=== PATIENT | female | born 1980 | race Caucasian/White ===

== ENCOUNTER 2017-01-18 22:42 | Emergency (ER) | payer MEDICAID ==
[2015-08-22 06:11] VITALS: BMI 28.9
[~2017-01-18 22:42] MED LIST: ADVIL200 MG PO; HYDROCODONE-APA1 TAB PO; VISTARIL25 MG PO; ZOLOFT50 MG PO
== END 2017-01-18 23:54 | disposition home or self-care (01) ==
LOC: D.ER 22:42
DX: J20.9 Acute bronchitis, unspecified (principal); F17.200 Nicotine dependence, unspecified, uncomplicated

== ENCOUNTER 2017-10-14 15:50 | Emergency (ER) | payer MEDICAID ==
[2015-08-22 06:11] VITALS: BMI 28.9
[2017-10-14 16:45] LABS: BASOPHILS 0.4 % (0-2); EOSINOPHILS 1.1 % (0-7); HEMATOCRIT 41.7 % (36.0-48.0); HEMOGLOBIN 14.5 g/dL (12-16); IMMATURE GRANULOCYTES 0.2 % (0-5); LYMPHOCYTES 24.7 % (15-50); MCH 32.9 pg (26.0-34.0); MCHC 34.8 g/dL (31.0-37.0); MCV 94.6 fL (80.0-100.0); MEAN PLATELET VOLUME 11.9 fL (7.4-10.4); MONOCYTES 5.7 % (2-11); NEUTROPHILS 67.9 % (40-80); PLATELET COUNT 200 10x3/uL (130-400); RBC 4.41 10x6/uL (4.00-5.40); RDW 12.7 % (11.5-14.5); WBC 9.8 10x3/uL (4.8-10.8)
[2017-10-14 16:47] LABS: ALBUMIN 3.9 g/dL (3.4-5.0); ALKALINE PHOSPHATASE 101 U/L (46-116); ALT (SGPT) 23 U/L (10-68); CALC OSMOLALITY 273 mosm/kg (275-300); CALCIUM 8.7 mg/dL (8.5-10.1); CARBON DIOXIDE 24.3 mmol/L (21.0-32.0); CHLORIDE - SERUM 105 mmol/L (98-107); CREATININE - SERUM 0.9 mg/dL (0.6-1.3); GLUCOSE 79 mg/dL (74-106); POTASSIUM - SERUM 4.3 mmol/L (3.5-5.1); PROTEIN - SERUM 7.3 g/dL (6.4-8.2); SODIUM 138 mmol/L (136-145); UREA NITROGEN 10 mg/dL (7-18); eGFR NON AFRICAN AMERICAN 75 mL/min (90-120)
[2017-10-14 16:55] LABS: HCG - QUANTITATIVE (MATERNAL) 0 mIU/mL
[2017-10-14 17:18] LABS: APPEARANCE CLEAR (CLEAR); BILIRUBIN NEGATIVE (NEGATIVE); COLOR YELLOW (YELLOW); GLUCOSE NEGATIVE (NEGATIVE); KETONE NEGATIVE (NEGATIVE); NITRITE NEGATIVE (NEGATIVE); PROTEIN NEGATIVE (NEGATIVE); UROBILINOGEN NORMAL (NORMAL)
== END 2017-10-14 18:15 | disposition home or self-care (01) ==
LOC: D.ER 15:50
PROVIDERS: Family Medicine
DX: R10.11 Right upper quadrant pain (principal)

== ENCOUNTER 2017-11-11 05:40 | Day surgery (SDC) | payer MEDICAID ==
[2017-11-10 13:35] LABS: BASOPHILS 0.3 % (0-2); EOSINOPHILS 1.3 % (0-7); HEMATOCRIT 42.2 % (36.0-48.0); HEMOGLOBIN 14.6 g/dL (12-16); IMMATURE GRANULOCYTES 0.2 % (0-5); MCH 33.1 pg (26.0-34.0); MCHC 34.6 g/dL (31.0-37.0); MCV 95.7 fL (80.0-100.0); MEAN PLATELET VOLUME 11.9 fL (7.4-10.4); MONOCYTES 6.4 % (2-11); NEUTROPHILS 65.8 % (40-80); PLATELET COUNT 184 10x3/uL (130-400); RBC 4.41 10x6/uL (4.00-5.40); WBC 8.6 10x3/uL (4.8-10.8)
[2017-11-10 13:48] LABS: CALC OSMOLALITY 278 mosm/kg (275-300); CALCIUM 9.6 mg/dL (8.5-10.1); CARBON DIOXIDE 22.1 mmol/L (21.0-32.0); CHLORIDE - SERUM 105 mmol/L (98-107); CREATININE - SERUM 0.8 mg/dL (0.6-1.3); SODIUM 140 mmol/L (136-145); UREA NITROGEN 9 mg/dL (7-18); eGFR NON AFRICAN AMERICAN 86 mL/min (90-120)
[2017-11-10 13:50] LABS: GLUCOSE 121 mg/dL (74-106)
[~2017-11-11] VITALS: Ht 162.6 cm; Wt 78.9 kg
--- NOTE | ~2017-11-11 | OP ---
PATIENT NAME: DONA COSTA MEDICAL RECORD: [id number] :82 LOCATION:D.OPS ADMISSION DATE: SURGEON: DAVEY HERRMANN MD DATE OF OPERATION: 11/11/2017 PREOPERATIVE DIAGNOSIS: Biliary dyskinesia. POSTOPERATIVE DIAGNOSIS: Biliary dyskinesia. PROCEDURE: Laparoscopic cholecystectomy. SURGEON: Davey Herrmann MD MANAGER PERFORMANCE IMPROVEMENT: Hyacinth Pastrana APRN REPORT OF OPERATION: The patient's abdomen was prepped and draped in sterile fashion. A cutdown was made on the inferior aspect of the umbilicus, 0 Vicryls were placed in the fascia bilaterally and the fascia was incised with 15 blade. I then bluntly entered the peritoneal cavity and placed a 12-mm Cedrick port. Under direct visualization, a 5-mm trocar was placed in the epigastrium and 2 more 5-mm trocars were placed in the right subcostal region. The gallbladder was elevated and there were no sign of any inflammatory changes. The cystic artery and cystic duct were dissected free and these were clipped proximally and distally and ligated in standard fashion. The gallbladder was taken off the liver bed using electrocautery and placed into the right upper quadrant. Any bleeding from the liver bed was then treated with electrocautery. We irrigated out the right upper quadrant and assured there was no sign of any bleeding or bile leakage. At this point, the ports and insufflation were then removed and the gallbladder was taken out through the umbilicus. The umbilical fascia was closed with interrupted 0 Vicryls times 3. The wounds were irrigated out with normal saline, infused with 10 mL of 0.25% Marcaine with epinephrine. The skin incisions were closed with subcutaneous 5-0 Monocryl and dressed appropriately. COMPLICATIONS: None. CONDITION: Stable. ANESTHESIA: General endotracheal and local. BLOOD LOSS: Minimal. TRANSINT:[id number] Voice Confirmation ID: [id number] DOCUMENT ID: [id number] DAVEY HERRMANN MD at 1228 CC: KATHY RAMIREZ MD [id number] DICTATION DATE: 11/11/17 0851 VETERINARY VIROLOGIST: 11/11/17 0946 [id number] [place] [address]
[~2017-11-11 05:40] MED LIST changes: +KLONOPIN0.5 MG PO; +TOFRANIL50 MG PO
[2017-11-11 06:28] VITALS: Ht 162.6 cm; Wt 78.9 kg
[2017-11-11] MEDS ORDERED: HYDROCODONE-APA1 TAB PO (08:52)
== END 2017-11-11 11:20 | disposition home or self-care (01) ==
LOC: D.OPS 05:40 → D.PAN 08:00 → D.OPS 08:00
PROVIDERS: Surgery
DX: K81.1 Chronic cholecystitis (principal); Z01.812 Encounter for preprocedural laboratory examination

== ENCOUNTER 2018-01-05 17:06 | Emergency (ER) | payer MEDICAID ==
[~2018-01-05] VITALS: Ht 162.6 cm; Wt 75.9 kg
[2018-01-05 17:20] VITALS: Ht 162.6 cm; Wt 75.9 kg
[2018-01-05] MEDS ORDERED: TORADOL10 MG PO (18:19)
[2018-01-05 19:28] VITALS: BP 103/69
== END 2018-01-05 19:30 | disposition home or self-care (01) ==
LOC: D.ER 17:06
DX: S90.32XA Contusion of left foot, initial encounter (principal); W20.8XXA Other cause of strike by thrown, projected or falling object, initial encounter; Y93.89 Activity, other specified; Y92.019 Unspecified place in single-family (private) house as the place of occurrence of the external cause

== ENCOUNTER 2018-03-29 18:11 | Day surgery (SDC) | payer MEDICAID ==
[~2018-03-29] VITALS: Ht 162.6 cm; Wt 77.1 kg
--- NOTE | ~2018-03-29 | MORECARE ---
CASE MANAGEMENT DISCHARGE SUMMARY PATIENT: DONA COSTA UNIT: [id number] ADM DATE: 03/29/18 AGE: 37 : [birth year] SEX: F ROOM/BED: D.2226 AUTHOR: KWADWO BRUNO PHYSICIAN: REFERRING PHYSICIAN: SOFIA SCHMITT MD DATE OF SERVICE: 03/31/18 Discharge Plan Patient Name: DONA COSTA Facility: [facility]:[place] : 1980 Planned Disposition: Anticipated Discharge Date: Discharge Date: 03/30/2018 Expected LOS: 0 Initial Reviewer: [email or web address] Initial Review Date: 03/31/2018 Generated: 03/31/18 10:10 am Patient Name: DONA COSTA Page [id number] at 0910 All edits/amendments must be made on the electronic document DICTATION DATE: 03/31/18909 MOLD BREAKER: RIDGE 03/31/18909 RPT#: [id number] DC DATE:03/30/18 STATUS: DIS IN [facility] [address] [place] [address] END OF REPORT
--- NOTE | ~2018-03-29 | DS ---
PATIENT:DONA COSTA :[birth year] MEDICAL RECORD: [id number] DISCHARGE SUMMARY ADMISSION DATE: 03/29/18 DISCHARGE DATE: 03/30/18 DATE OF ADMISSION: 03/29/2018. DATE OF DISCHARGE: 03/30/2018. ADMISSION DIAGNOSES: 1. Pelvic pain. 2. Pelvic mass. DISCHARGE DIAGNOSES: 1. Pelvic pain. 2. Pelvic mass. 3. Right hemorrhagic ovarian cyst. 4. Adhesive disease. 5. Presence of foreign body. 6. Suspect adenomyosis. ATTENDING: Sofia Schmitt MD PROCEDURE PERFORMED: 1. Diagnostic laparoscopy. 2. Lysis of adhesions. 3. Removal of foreign body. 4. Right ovarian cystectomy. HISTORY OF PRESENT ILLNESS: See the H&P in [place]. SUMMARY OF HOSPITALIZATION: The patient was admitted to the hospital and underwent procedure. The patient is discharged pending void and tolerating p.o. DISCHARGE MEDICATIONS: Will include Percocet and ibuprofen. The patient will follow up in 2 weeks at [facility]. TRANSINT:[id number] Voice Confirmation ID: [id number] DOCUMENT ID: [id number] SOFIA SCHMITT MD at 1243 CC: [id number] DICTATION DATE: 03/30/18 1608 DRILLER AND REAMER: 03/31/18 0124 DIS IN 03/30/18 [id number] [place] [address]
[~2018-03-29 18:11] MED LIST changes: +TORADOL10 MG PO
[2018-03-29] MEDS ORDERED: DESERYL50 M2 PO (18:17)
[2018-03-29 18:36] LABS: APPEARANCE CLEAR (CLEAR); COLOR YELLOW (YELLOW)
[2018-03-29 18:37] LABS: BILIRUBIN NEGATIVE (NEGATIVE); GLUCOSE NEGATIVE (NEGATIVE); KETONE NEGATIVE (NEGATIVE); NITRITE NEGATIVE (NEGATIVE); PROTEIN NEGATIVE (NEGATIVE); UROBILINOGEN NORMAL (NORMAL)
[2018-03-29 18:38] LABS: BACTERIA FEW /hpf (NONE SEEN); RED CELLS - URINE 0-5 /hpf (0-5); WHITE CELLS - URINE 0-5 /hpf (0-5)
[2018-03-29 18:53] LABS: BASOPHILS 0.5 % (0-2); EOSINOPHILS 1.6 % (0-7); HEMATOCRIT 38.6 % (36.0-48.0); HEMOGLOBIN 13.2 g/dL (12-16); IMMATURE GRANULOCYTES 0.3 % (0-5); LYMPHOCYTES 31.5 % (15-50); MCH 32.8 pg (26.0-34.0); MCHC 34.2 g/dL (31.0-37.0); MEAN PLATELET VOLUME 11.5 fL (7.4-10.4); MONOCYTES 6.2 % (2-11); NEUTROPHILS 59.9 % (40-80); PLATELET COUNT 189 10x3/uL (130-400); RBC 4.02 10x6/uL (4.00-5.40); RDW 13.3 % (11.5-14.5); WBC 10.9 10x3/uL (4.8-10.8)
[2018-03-29 19:15] LABS: ALBUMIN 3.3 g/dL (3.4-5.0); ALKALINE PHOSPHATASE 93 U/L (46-116); ALT (SGPT) 23 U/L (10-68); AMYLASE - SERUM 32 U/L (25-115); BILIRUBIN - TOTAL 0.11 mg/dL (0.2-1.3); CALC OSMOLALITY 278 mosm/kg (275-300); CALCIUM 8.2 mg/dL (8.5-10.1); CARBON DIOXIDE 23.7 mmol/L (21.0-32.0); CHLORIDE - SERUM 107 mmol/L (98-107); CREATININE - SERUM 0.7 mg/dL (0.6-1.3); GLUCOSE 101 mg/dL (74-106); LIPASE 101 U/L (73-393); POTASSIUM - SERUM 3.7 mmol/L (3.5-5.1); PROTEIN - SERUM 6.8 g/dL (6.4-8.2); SODIUM 141 mmol/L (136-145); UREA NITROGEN 8 mg/dL (7-18); eGFR NON AFRICAN AMERICAN > 90 mL/min (90-120)
[2018-03-29 20:04] LABS: HCG URINE NEGATIVE (NEGATIVE)
[2018-03-29 21:30] VITALS: BP 108/65
[2018-03-30] VITALS (7 sets, daily range): BP systolic 89–109; BP diastolic 55–76; Ht 162.6 cm; Wt 77.1 kg
[2018-03-30] MEDS ORDERED: IBUPROFEN800 MG PO (16:35)
[2018-03-30] MEDS ORDERED: OXYCODONE-APAP1 T10 PO (16:36)
== END 2018-03-30 18:29 | disposition home or self-care (01) ==
LOC: OBSVTIME → D.OPS 18:11 → D.ER 18:11 → D.MS 23:05 → D.ER 23:05 → D.MS 23:05 → OBSVTIME 23:05 → D.ER 23:32 → EDSTATUS 03-30 12:15 → D.MS 03-30 18:29 → D.OPS 03-30 18:29 → D.MS 03-30 18:29
PROVIDERS: Family Medicine
DX: N83.201 Unspecified ovarian cyst, right side (principal); R10.2 Pelvic and perineal pain; N73.6 Female pelvic peritoneal adhesions (postinfective)

== ENCOUNTER 2018-04-03 17:53 | Emergency (ER) | payer MEDICAID ==
[~2018-04-03] VITALS: Ht 162.6 cm; Wt 78.6 kg
[~2018-04-03 17:53] MED LIST changes: +DESERYL50 M2 PO; +IBUPROFEN800 MG PO; +OXYCODONE-APAP1 T10 PO
[2018-04-03 17:55] VITALS: BP 130/79; Ht 162.6 cm; Wt 78.6 kg
== END 2018-04-03 19:12 | disposition home or self-care (01) ==
LOC: D.ER 17:53
DX: T81.31XA Disruption of external operation (surgical) wound, not elsewhere classified, initial encounter (principal); F17.200 Nicotine dependence, unspecified, uncomplicated

== ENCOUNTER 2018-05-29 10:20 | Day surgery (SDC) | payer MEDICAID ==
[2018-05-25 11:32] LABS: BASOPHILS 1.2 % (0-2); EOSINOPHILS 3.1 % (0-7); HEMATOCRIT 41.4 % (36.0-48.0); HEMOGLOBIN 14.2 g/dL (12-16); IMMATURE GRANULOCYTES 0.1 % (0-5); LYMPHOCYTES 30.3 % (15-50); MCH 32.8 pg (26.0-34.0); MCHC 34.3 g/dL (31.0-37.0); MCV 95.6 fL (80.0-100.0); MEAN PLATELET VOLUME 11.5 fL (7.4-10.4); MONOCYTES 6.4 % (2-11); NEUTROPHILS 58.9 % (40-80); PLATELET COUNT 192 10x3/uL (130-400); RBC 4.33 10x6/uL (4.00-5.40); RDW 12.4 % (11.5-14.5); WBC 7.7 10x3/uL (4.8-10.8)
[2018-05-25 11:51] LABS: CALC OSMOLALITY 272 mosm/kg (275-300); CALCIUM 8.7 mg/dL (8.5-10.1); CARBON DIOXIDE 26.2 mmol/L (21.0-32.0); CHLORIDE - SERUM 101 mmol/L (98-107); CREATININE - SERUM 0.9 mg/dL (0.6-1.3); GLUCOSE 99 mg/dL (74-106); POTASSIUM - SERUM 3.9 mmol/L (3.5-5.1); SODIUM 137 mmol/L (136-145); UREA NITROGEN 11 mg/dL (7-18); eGFR NON AFRICAN AMERICAN 75 mL/min (90-120)
[2018-05-29] VITALS (7 sets, daily range): BP systolic 107–119; BP diastolic 56–67; Ht 264.2 cm; Wt 82.7 kg
[~2018-05-29] VITALS: Ht 264.2 cm; Wt 82.7 kg
[2018-05-29] MEDS ORDERED: CYCLOBENZAPRINE10 MG PO ×2 (10:33→10:34)
[2018-05-29] MEDS ORDERED: MOBIC7.5 MG PO ×2 (10:35→19:23)
[2018-05-29 10:51] LABS: HCG URINE NEGATIVE (NEGATIVE)
--- NOTE | 2018-05-29 16:20 | NUR ---
RECEIVED PT TO LABOR AND DELIVERY POST RR, POST LAP SUPRACERVICAL HYSTERECTOMY BY DR. SCHMITT. PT HAS 3 LAP INCISIONS NOTED TO ABD, INTACT WITH GLUE, DRY. ABDOMEN PALPATES SOFT, TENDER TO TOUCH. PT HAS SIMPSON CATH IN PLACE, DRAINING YELLOW URINE, 530 ML'S TOTAL NOTED. PT HAS SCD'S IN PLACE. RECEIVED PT SLEEPY, BUT AWAKENS WHEN SPOKEN TO, BUT THEN EASILY FALLS BACK ASLEEP, SNORING SOFTLY. PT DENIES NAUSEA, SOB, OR DIFFICULTY BREATHING. O2 SAT 94-95% ON 2LNC. VSS. SRUP X2, CALL LIGHT AND PHONE WITHIN REACH. FAMILY CALLED TO ROOM BY TIFFANIE MALLOYENGINEERING TECHNICAL SPECIALIST NURSE.
--- NOTE | 2018-05-29 17:00 | NUR ---
THIS NURSE RECEIVES REPORT FORM Reynold THOMPSON RN. PT CO PAIN AT ABD. DR SCHMITT IN UNIT- ORDERS RECEIVED TO GIVE PO MEDS AND TO REMOVE SIMPSON CATH. PT ALSO REQUESTING SOMETHING TO DRINK.
--- NOTE | 2018-05-29 17:10 | NUR ---
DR SCHMITT REQUESTS THAT SCRIPTS X3 BE GIVEN TO PT FAMILY SO THAT THEY CAN GET THEM FILLED BEFORE PT DISCHARGES- SCRIPTS GIVEN TO FAMILY OF PT CHOICE- DAUGHTER.
--- NOTE | 2018-05-29 17:30 | NUR ---
O2 REMOVED. PT ALERT- RESP REG AND EVEN.
--- NOTE | 2018-05-29 17:38 | NUR ---
PAIN MED GIVEN. ICE WATER AND APPLE JUICE GIVEN.
--- NOTE | 2018-05-29 17:44 | NUR ---
SIMPSON CATH REMOVED POST BULB DEFLATED-700CC IN BAG. PT REQUESTS TO GET UP AFTER CATH REMOVED.
--- NOTE | 2018-05-29 17:50 | NUR ---
PT AMBULATED TO BATHROOM- UNABLE TO VOID AT THIS TIME.
--- NOTE | 2018-05-29 18:17 | NUR ---
PT RINGS CALL LIGHT- REQUESTS MORE WATER, APPLE JUICE AND JELLO.
--- NOTE | 2018-05-29 19:00 | NUR ---
REPORT TO PM SHIFT.
--- NOTE | 2018-05-29 19:16 | NUR ---
PT. WALKING ABOUT IN ROOM. DRESSED IN HER OWN CLOTHES. STATES SHE IS READY FOR DISCHARGE. VOIDED 250 CC IN [place] HAT. BREATH SOUNDS CLEAR AND BOWEL SOUNDS AUDIBLE. IV SALINE LOCK DISCONTINUED WITH INTACT CATH. TIP NOTED. 3 PUNCTURE WOUNDS NOTED ON ABD. 2 LOWER ABD AND ONE AT UMBILICUS. NO DRAINAGE NOTED FROM TWO LOWER ABD. PUNCTURES AND PUNCTURE AT UMBILICUS WITH OLD DARK BLOOD AT SITE. ALCOHOL PREPS USED TO CLEAN AREA WITHOUT ACTIVE BLEEDING NOTED. PT. DENIES ANY VAGINAL BLEEDING. VITAL SIGNS OBTAINED . MEAL TRAY AT BEDSIDE WITH APPROX. 75 % CONSUMED. INFORMED PT. THAT THIS NURSE WOULD RETURN DANIEL WITH DISCHARGE INSTRUCTIONS.
[2018-05-29] MEDS ORDERED: PERCOCET 7.5/321 TAB PO (19:24)
[2018-05-29] MEDS ORDERED: NEURONTIN 300300 MG PO (19:26)
--- NOTE | 2018-05-29 19:37 | NUR ---
WRITTEN AND VERBAL DISCHARGE INSTRUCTIONS GIVEN TO PT. PT. STATES THAT SHE ALREADY HAS APPT. FOR RTC SCHEDULED FOR . ALSO REPORTS THAT SCRIPTS ARE ALREADY FILLED AT PHARMACY.
--- NOTE | 2018-05-29 19:42 | NUR ---
DISCHARGED TO FRONT ENTRANCE VIA WHEELCHAIR BY THIS NURSE. MALE THAT WAS WITH PT. DRIVING PT. HOME. PT. REMARKS THAT "HE" WILL BE SURE THAT SHE FOLLOWS ALL INSTRUCTIONS.
--- NOTE | 2018-07-03 07:49 | OP ---
PATIENT NAME: DONA COSTA MEDICAL RECORD: [id number] :82 LOCATION:D.[facility] ADMISSION DATE: SURGEON: JOZEF SCHMITT MD DATE OF OPERATION: 05/29/2018 PREOPERATIVE DIAGNOSES: 1. Dysmenorrhea. 2. Dysfunctional uterine bleeding. POSTOPERATIVE DIAGNOSES: 1. Dysmenorrhea. 2. Dysfunctional uterine bleeding. PROCEDURES: 1. Diagnostic laparoscopy. 2. Laparoscopic subtotal hysterectomy. 3. Bilateral salpingectomy. SURGEON: Jozef Schmitt MD LEAD BURNER: Tiffanie ANESTHESIOLOGIST: Chad Collazo MD ANESTHETIC: General. FINDINGS: Uterus was slightly enlarged and boggy. Both tubes and ovaries unremarkable. Endometrial implant was noted on the right ovary. SPECIMENS REMOVED: Bilateral tubes and uterus without cervix, morcellated. SPECIMEN DISPOSITION: All specimens to pathology. ESTIMATED BLOOD LOSS: Less than or equal to 100. FLUIDS: Lactated Ringer's 1200 cc. URINE OUTPUT: Clear urine, 500 cc. COMPLICATIONS: None. DRAINS: Grewal to gravity, discontinued at women's services. INDICATION: The patient is a 37-year-old female with heavy painful periods. The patient has also had dyspareunia. These symptoms have a negative impact on her quality of life and are impacting relationships. The patient desires definitive therapy. Risks, benefits, and unique risks of subtotal hysterectomy have been discussed. DESCRIPTION OF PROCEDURE: After informed consent was assured, the patient was taken to the operating room, where anesthetic was obtained. The patient was now prepped and draped in usual sterile fashion after Grewal catheter has been started. Attention was directed to the abdomen, where an incision was made to accommodate a 5-mm trocar, which was inserted without difficulty and pneumoperitoneum was developed. The patient was now placed in Trendelenburg OPERATIVE REPORT [id number] DONA COSTA position. Accessory ports were placed in right and left lower quadrants. The right lower quadrant port was a 12-mm port. The left lower quadrant port was a 5-mm port. All sites were injected with Marcaine prior to the incisions being made. With the bowel swept free of the pelvis, the right tube was elevated; and using coagulation cutter, the tube was removed from its attachments to the adnexa. This dissection goes across the mesosalpinx and across uteroovarian ligament and round ligament. The broad ligament was opened and dissected anteriorly to the midline of the vesicouterine junction. Posteriorly, the tissue was taken down. The vessels were skeletonized, compressed, coagulated, and . Attention was now directed to the left side, where the left tube was elevated and the mesosalpinx was incised in similar fashion. Again, the dissection was carried out over uteroovarian ligaments and round ligaments. The anterior leaf of the broad ligament was opened and the bladder flap now fully developed. Posterior tissue was taken down and the vessels of the left side were compressed, coagulated, and . Using the Harmonic scalpel, uterus was now removed from its attachments to the cervix. This begins on the right and concludes on the left. After removal of the uterus, the 12-mm port was removed and a PlasmaSORD was introduced to the pelvis. The uterus was now removed in several strips. After removal of the bulk of the uterine tissue, morcellator was removed and the 12-mm replaced it. The pelvis was inspected. Straight portions of the uterus were removed with graspers and the pelvis was now copiously irrigated. Irrigant was removed. Endometrial implant was noted on the right ovary and this was cauterized. The operative field was inspected and found to be hemostatic. The endocervical canal was now cauterized with Gyrus coagulation cutter. After this had been performed, the pelvis was again irrigated and inspected. The irrigant was removed. The trocars were now removed under direct visualization and the primary port was removed after release of the pneumoperitoneum. All sites were closed with a subcuticular stitch and Dermabond was applied. Sponge, lap, and needle count was correct x2. The patient was awakened and went to the recovery area in stable condition. TRANSINT:[id number] Voice Confirmation ID: [id number] DOCUMENT ID: [id number] JOZEF SCHMITT MD at 0749 CC: [id number] DICTATION DATE: 06/25/18 155 SUPERVISOR SEWING DEPARTMENT: 06/25/18 1815 [facility] 05/29/18 [id number]
== END 2018-05-29 19:42 | disposition home or self-care (01) ==
LOC: D.OPS 10:20 → D.PAN 12:30 → D.OPS 13:15 → D.LD 16:50 → D.OPS 19:42
PROVIDERS: Obstetrics & Gynecology
DX: N94.6 Dysmenorrhea, unspecified (principal); N93.8 Other specified abnormal uterine and vaginal bleeding

== ENCOUNTER 2019-03-29 05:00 | Inpatient (IN) | payer MEDICAID ==
[2019-03-26 10:41] LABS: BASOPHILS 0.6 % (0-2); EOSINOPHILS 2.1 % (0-7); HEMATOCRIT 43.4 % (36.0-48.0); HEMOGLOBIN 14.8 g/dL (12-16); IMMATURE GRANULOCYTES 0.1 % (0-5); LYMPHOCYTES 27.2 % (15-50); MCH 32.7 pg (26.0-34.0); MCHC 34.1 g/dL (31.0-37.0); MEAN PLATELET VOLUME 11.3 fL (7.4-10.4); MONOCYTES 7.6 % (2-11); NEUTROPHILS 62.4 % (40-80); PLATELET COUNT 191 10x3/uL (130-400); RBC 4.52 10x6/uL (4.00-5.40); RDW 12.6 % (11.5-14.5); WBC 7.3 10x3/uL (4.8-10.8)
[2019-03-26 10:53] LABS: CALC OSMOLALITY 269 mosm/kg (275-300); CALCIUM 9.2 mg/dL (8.5-10.1); CHLORIDE - SERUM 102 mmol/L (98-107); CREATININE - SERUM 0.8 mg/dL (0.6-1.3); GLUCOSE 86 mg/dL (74-106); POTASSIUM - SERUM 4.3 mmol/L (3.5-5.1); SODIUM 136 mmol/L (136-145); UREA NITROGEN 10 mg/dL (7-18); eGFR NON AFRICAN AMERICAN 85 mL/min (90-120)
[~2019-03-29] VITALS: Ht 162.6 cm; Wt 77.3 kg
[2019-03-29] VITALS (7 sets, daily range): BP systolic 97–106; BP diastolic 57–71; Ht 162.6 cm; Wt 77.3 kg
[~2019-03-29 05:00] MED LIST changes: +CYCLOBENZAPRINE10 MG PO; +HYDROCODON-ACE1 EA10 PO; +MOBIC7.5 MG PO; +NEURONTIN 300300 MG PO; +PERCOCET 7.5/321 TAB PO
--- NOTE | 2019-03-29 08:59 | NUR ---
SOFI LOT [id number] EXP 12/21/2023 REF [id number]
--- NOTE | 2019-03-29 11:00 | NUR ---
PT RECIEVED FROM OR NURSE. PT'S PAIN 03/04. FLIGHT TEST ENGINEER SET UP & PT PUSHED FLIGHT TEST ENGINEER BUTTON. WILL PERFORM ADMISSION ASSESSMENT ONCE PT'S PAIN TOLERABLE. IV INFUSING IN LEFT WRIST LR @125ML/HR. SCD'S PLACED ON PT. LOW TRANSERSE INCISION WITH DERMABOND. SIMPSON CATH DRAINING TO GRAVITY 150ML.
--- NOTE | 2019-03-29 12:30 | NUR ---
ADMISSION ASSESSMENT COMPLETED, V/S OBTAINED. PT INSTRUCTED ON I/S & TO TURN, COUGH,& DEEP BREATHE. PT STATED PAIN IS GETTING BETTER.
--- NOTE | 2019-03-29 13:50 | NUR ---
PT AWAKE & ALERT. PT STATES PAIN IS GETTING BETTER & SHE IS PUSHING OUTSIDE PARTS SALES BUTTIN NEEDED.
--- NOTE | 2019-03-29 14:44 | NUR ---
PT AWAKE & ALERT STATES PAIN IS BETTER WHEN NOT MOVING. SRUPX2 CALL LIGHT W/IN REACH.
--- NOTE | 2019-03-29 15:37 | NUR ---
PT'S LEAD INVESTIGATOR REFILLED AT THIS TIME. PT AWAKE & ALERT W/ NO S/S OF DISTRESS.
--- NOTE | 2019-03-29 16:10 | NUR ---
PT STATES PAIN IS 6/10 AT THIS TIME & STATES "PUSHING BUTTON" HELPS. SRUPX2 CALL LIGHT W/IN REACH.
--- NOTE | 2019-03-29 17:00 | NUR ---
pt sitting up in bed awake & alert w/ no c/o at this time. srupx2 call light w/in reach.
--- NOTE | 2019-03-29 18:09 | NUR ---
PT SITTING UP AWAKE & ALERT. PT STATES "PAIN IS BETTER ABOUT A 4-5/10." PT IN STABLE CONDITION. SRUPX2 CALL LIGHT W/IN REACH.
--- NOTE | 2019-03-29 18:28 | NUR ---
PT SITTING UP IN BED AWAKE & ALERT W/ NO C/O AT THIS TIME. PT HAS VISITORS IN ROOM AT THIS TIME.
--- NOTE | 2019-03-29 19:01 | NUR ---
PM ROUNDS MADE, PT SITTING UP IN BED VISITING WITH FAMILY AND FRIENDS, PT STATES "I HAVEN'T PUSHED MY BUTTON IN A WHILE", INFORMED PT THAT I WILL BE BACK SHORTLY TO DO ASSESSMENT AND VS, PT VERBALIZES UNDERSTANDING, DENIES NEEDS AT THIS TIME
--- NOTE | 2019-03-29 19:40 | NUR ---
PT RESTING IN BED. S/O AT BEDSIDE. ASSESSMENT COMPLETE PER FLOWSHEET. VSS. BS CLEAR IN ALL LOBES. BS HYPOACTIVE X4 QUADRANTS. LOW TRANSVERSE ABD INCISION C/D/I WITH DERMABOND. R. FA PIV PATENT AND INFUSING LR @ 125ML/HR. SCANT AMOUNT OF VAGINAL BLEEDING NOTED ON PERIPAD. PERICARE/FC DONE AT THIS TIME. FC DRAINING CLEAR YELLOW URINE. FC BAG EMPTIED WITH 650ML OF CLEAR YELLOW URINE NOTED. PT REPORTS THAT SHE HAS PASSED FLATUS. SCDS ON BLE AND WORKING PROPERLY. POC DISCUSSED WITH PT INCLUDING PAIN MANAGEMENT, IS, SCDS, AND IV. QUESTIONS ANSWERED. PT INSTRUCTED TO NOTIFY NURSE WITH ANY PROBLEMS, NEEDS, OR CONCERNS. VERBALIZED UNDERSTANDING. BED IN LOW POSITION, SRUP X2, AND CALL LIGHT WITHIN PTS REACH.
--- NOTE | 2019-03-29 20:40 | NUR ---
UPON ENTERING ROOM, PT IS USING I.S. INST, PT RATES INC PAIN 11/02, PT INST ON USING ROLLER MAKER FOR PAIN CONTROL, PT VERBALIZES UNDERSTANDING, SCD'S CONTINUE ON AND WORKING PROPERLY, DENIES NEEDS AT THIS TIME, FOB AT BEDSIDE
--- NOTE | 2019-03-29 21:16 | NUR ---
PT RESTIING IN BED. SCHEDULED GABAPENTIN GIVEN PER MD ORDER. PT DEEP BREATHING AND COUGHING OUT. PT ENCOURAGED TO REPOSITION FROM HER BACK TO HER SIDE BUT STATES, "I HAVE BEEN MOVING AROUND IN BED AND I'M COMFORTABLE LAYING ON MY BACK RIGHT NOW." IV IS PATENT AND INFUSING WITHOUT DIFFICULTY. FC TO GRAVITY. CALL LIGHT WITHIN PT'S REACH, BED IN LOW POSITION. INSTRUCTED PT TO NOTIFY NURSE WITH ANY PROBLEMS, NEEDS, OR CONCERNS. VERBALIZED UNDERSTANDING.
--- NOTE | 2019-03-29 21:30 | NUR ---
ICE AND LEMON ANGOON DRINK GIVEN PER PT REQUEST. NO OTHER REQUEST MADE. CALL LIGHT WITHIN PT'S REACH.
--- NOTE | 2019-03-29 22:40 | NUR ---
PT RESTING IN BED. S/O AT BEDSIDE. PT DENIES ANY C/O OR NEEDS AT THIS TIME. SCD ON BLE AND WORKING PROPERLY. FC TO GRAVITY. IV PATENT TO Huseyin CHICAS INSTRUCTED PT TO NOTIFY NURSE WITH ANY PROBLEMS, NEEDS, OR CONCERNS. VERBALIZED UNDERSTANDING. BED IN LOW POSITION, SRU X2, CALL LIGHT WITHIN PT'S REACH.
--- NOTE | 2019-03-29 23:45 | NUR ---
PT RESTING IN BED. VSS. PT COUGHED AND DEEP BREATHED USING A SMALL PILLOW FOR A SPLINT TO HER INCISION. PT REPORTS THAT SHE JUST TURNED TO HER BACK. IV PATENT AND WITHOUT ANY REDNESS OR TENDERNESS. LOW TRANSVERE ABD INCISION C/D/I WITH DERMABOND. QUARTER SIZED INCISIONS NOTED TO EACH SIDE OF ABD INCISION C/D/I WITH DERMABOND. INCISION NOTED TO UMBILICUS C/D/I WITH DERMABOND. FC TO GRAVITY DRAINING CLEAR YELLOW URINE. NO VAGINAL BLEEDING NOTED TO PERIPAD. SCDS ON BLE WORKING PROPERLY. CUP OF ICE AND LEMON NUIQSUT DRINK PROVIDED PER PT REQUEST. PT INSTRUCTED TO NOTIFY NURSE WITH ANY PROBLEMS, NEEDS, OR CONCERNS. VERBALIZED UNDERSTANDING. BED IN LOW POSITION, SRUP X2, LPN PRIVATE DUTY BUTTON, AND CALL LIGHT WITHIN PTS REACH.
--- NOTE | 2019-03-30 00:07 | NUR ---
NEW DILAUDID INTERNATIONAL RELATIONS PROFESSOR VIAL CHANGED PER MD ORDER. NOTHING LEFT TO WASTE IN OLD VIAL.
--- NOTE | 2019-03-30 00:57 | NUR ---
PT RESTING IN BED WITH EYES CLOSED. RESPIRATIONS EVEN AND UNLABORED, NO DISTRESS NOTED. BED IN LOW POSITION, SRUP X2, CALL LIGHT AND MEDICAL OFFICE ASST BUTTON WITHIN PTS EACH.
--- NOTE | 2019-03-30 03:06 | NUR ---
PT RESTING IN BED WITH EYES CLOSED. RESPIRATIONS EVEN AND UNLABORED. BED IN LOW POSITION. SRUP X2, CALL LIGHT AND CHOCOLATE MAKER BUTTON WITHIN PTS REACH.
[2019-03-30 03:40] VITALS: BP 103/66
--- NOTE | 2019-03-30 03:40 | NUR ---
PT RESTING IN BED. VSS. R. FA PIV PATENT. LOW TRANSVERSE ABD INCISION C/D/I WITH DERMABOND. QUARTER SIZED ABD INCISIONS X2 C/D/I WITH DERMABOND. UMBILICUS INCISION C/D/I WITH DERMABOND. SCANT AMOUNT OF VAGINAL BLEEDING NOTED ON PERIPAD. PERICARE/FC DONE. PERIPAD CHANGED. FC TO GRAVITY DRAINING CLEAR YELLOW URINE WITH 850ML EMPTIED FROM BAG. SCDS ON BLE WORKING PROPERLY. PT COUGHED AND BREATHED SPLINTING HER INCISION WITH SMALL PILLOW. GOWN CHANGED. NO OTHER REQUEST MADE. PT INSTRUCTED TO NOTIFY NURSE WITH ANY PROBLEMS, NEEDS, OR CONCERNS. VERBALIZED UNDERSTANDING. BED IN LOW POSITION, SRUP X2, CALL LIGHT AND BINDERY MANAGER BUTTON WITHIN PTS REACH.
--- NOTE | 2019-03-30 05:40 | NUR ---
PT RESTING COMFORTABLY IN BED. DENIES ANY COMPLAINTS. IV PATENT AND INFUSING TO R. FA. ICE PACK FILLED AND PLACED TO ABD INCISION. SOFT DRINK AND CUP OF ICE GIVEN TO PT PER HER REQUEST. SCDS ON BLE AND WORKING PROPERLY. NO OTHER REQUEST MADE. INSTRUCTED PT TO NOTIFY NURSE WITH ANY PROBLEMS, NEEDS, OR CONCERNS. VERBALIZED UNDERSTANDING. BED IN LOW POSITION, SRUP X2, CALL LIGHT AND DIE FORGER BUTTONH WITHIN PTS REACH.
--- NOTE | 2019-03-30 06:56 | NUR ---
DR SCHMITT CALLS UNIT, ORDERS RECEIVED TO SALINE LOCK IV, D/C LR AND DILAUDID WEATHER ANALYST, D/C SIMPSON CATH, ADM PERCOCET 10/325 MG Q4HPRN FOR MOD-SEV PAIN, OR PERCOCET 5/325 MG Q4HPRN FOR MILD-MOD PAIN AND MOTRIN 800 MG Q8HPRN FOR CRAMPS, SEE ORDERS, READ BACK AND VERIFIED
--- NOTE | 2019-03-30 07:15 | NUR ---
LAB IN PT'S ROOM AT THIS TIME.
--- NOTE | 2019-03-30 07:15 | NUR ---
TALKED TO PT REGARDING DR MEDEIROS ORDERS, PT REPORTS THAT SHE HAS TAKEN PERCOCET AND MOTRIN WITH NO PROBLEMS
[2019-03-30 07:58] LABS: BASOPHILS 0.2 % (0-2); EOSINOPHILS 0.5 % (0-7); HEMATOCRIT 36.3 % (36.0-48.0); HEMOGLOBIN 11.9 g/dL (12-16); IMMATURE GRANULOCYTES 0.3 % (0-5); LYMPHOCYTES 21.5 % (15-50); MCH 32.1 pg (26.0-34.0); MCHC 32.8 g/dL (31.0-37.0); MCV 97.8 fL (80.0-100.0); MEAN PLATELET VOLUME 11.8 fL (7.4-10.4); NEUTROPHILS 70.5 % (40-80); PLATELET COUNT 192 10x3/uL (130-400); RBC 3.71 10x6/uL (4.00-5.40); RDW 12.8 % (11.5-14.5); WBC 10.4 10x3/uL (4.8-10.8)
[2019-03-30 08:02] LABS: CALC OSMOLALITY 274 mosm/kg (275-300); CARBON DIOXIDE 28.4 mmol/L (21.0-32.0); CHLORIDE - SERUM 106 mmol/L (98-107); CREATININE - SERUM 0.8 mg/dL (0.6-1.3); GLUCOSE 101 mg/dL (74-106); POTASSIUM - SERUM 4.1 mmol/L (3.5-5.1); SODIUM 139 mmol/L (136-145); UREA NITROGEN 4 mg/dL (7-18); eGFR NON AFRICAN AMERICAN 85 mL/min (90-120)
[2019-03-30 08:15] VITALS: BP 97/61
--- NOTE | 2019-03-30 08:20 | NUR ---
PT'S SIMPSON D/C'ED AT THIS TIME, PT TOELRATED WELL. IV SALINE LOCKED. SCD'S REMOVED AT THIS TIME.
--- NOTE | 2019-03-30 08:30 | NUR ---
PT SAT UP ON SIDE OF BED W/ NO C/O AT THIS TIME. PT WALKED TO RR W/ STEADY GAIT. LINENS CHANGED AT THIS TIME.
--- NOTE | 2019-03-30 10:18 | NUR ---
PT UP WALKING IN HALLS W/ STEADY GAIT. PT STATED SHE WAS ABLE TO VOID W/O DIFFICULTY.
--- NOTE | 2019-03-30 11:15 | NUR ---
PT WALKING IN EMMANUEL W/ STEADY GAIT AT THIS TIME.
[2019-03-30 12:00] VITALS: BP 103/55; BP 106/56
--- NOTE | 2019-03-30 12:00 | NUR ---
PT SLEEPING AT THIS TIME.
--- NOTE | 2019-03-30 12:58 | NUR ---
PT C/O PAIN PAIN MEDS GIVEN SEE EMAR.
--- NOTE | 2019-03-30 13:53 | NUR ---
PT STATES PAIN IS SOME BETTER BUT STILL IN PAIN SEE TOYA BOSCH GIVEN.
--- NOTE | 2019-03-30 14:20 | NUR ---
PT WALKING IN EMMANUEL W/ STEADY STATES PAIN IS BETTER NOW.
--- NOTE | 2019-03-30 15:00 | NUR ---
PT SITTING UP IN BED AWAKE W/ NO C/O AT THIS TIME. PT GIVEN PRUNE JUICE & SPRITE PER PT REQUEST.
--- NOTE | 2019-03-30 16:00 | NUR ---
PT SITTING UP IN BED W/ NO C/O AT THIS TIME.
--- NOTE | 2019-03-30 16:22 | OP ---
PATIENT NAME: DONA COSTA MEDICAL RECORD: [id number] :82 LOCATION:JT .1220 ADMISSION DATE:03/29/19 SURGEON: JOZEF SCHMITT MD DATE OF OPERATION: 03/29/2019 PREOPERATIVE DIAGNOSES: 1. Chronic pelvic pain. 2. Persistent micro periods after subtotal hysterectomy. POSTOPERATIVE DIAGNOSES: 1. Chronic pelvic pain. 2. Persistent micro periods after subtotal hysterectomy. 3. Endometriosis. 4. Mild pelvic adhesions. PROCEDURES: 1. Diagnostic laparoscopy. 2. Laparoscopic bilateral salpingo-oophorectomy. 3. Exploratory laparotomy. 4. Lysis of adhesions. 5. Trachelectomy. SURGEON: Jozef Schmitt MD CONSTRUCTION REP: Najma Meadows DO SALON SALES CONSULTANT: Filemon Duque. ANESTHETIC: General. FINDINGS: Adhesions of the omentum to the midline and the cervical stump. Otherwise, the ovaries are unremarkable. Endometrial implants are noted to the right side of the cervix just above the right uterosacral ligament. The cervix is unremarkable. SPECIMENS REMOVED: 1. Cervix. 2. Bilateral ovaries. SPECIMEN DISPOSITION: All specimens to pathology. ESTIMATED BLOOD LOSS: Less than or equal to 150 cc. FLUIDS: 1900 cc of lactated Ringer's. URINE OUTPUT: 500 cc of clear urine. COMPLICATIONS: None. DRAINS: Grewal to gravity. INDICATIONS: The patient is a 38-year-old female with persistent pelvic pain. The patient has had spotting from the cervix at times. The patient has chronic dyspareunia. After exhausting desired conservative management, the patient requests BSO with trachelectomy. OPERATIVE REPORT [id number] DONA COSTA DESCRIPTION OF PROCEDURE: After informed consent was assured, the patient was taken to the operating room where anesthetic was obtained. The patient was prepped and draped in the usual sterile fashion after she has been placed in [facility]. An acorn manipulator was placed in the cervix. Attention was now directed to the abdomen where an incision was made. A trocar inserted and pneumoperitoneum developed. Accessory ports were placed in the right and left lower quadrant with a 10-mm port placed in the midline. Upon entering the pelvis and the patient in Trendelenburg position bowel was swept free of the operative field. Adhesions were noted in the midline and these were grasped from the left and taken down from the right port with a Thunderbeat coagulation cutter. Right ovary is now retracted to the midline and elevated. The ureter was identified on the right. The ureter passes well below the operative field. The infundibulopelvic ligament was compressed, coagulated, and . This dissection was carried out underneath the remaining portion of the right ovary. This ovary was placed in the cul-de-sac. Attention was now directed to the left side. The left ovary is retracted to the midline and infundibulopelvic ligament was collapsed and it was compressed, coagulated, and . The dissection was carried out under the left ovary and the tube was placed into the cul-de-sac. Using EndoShears, dissection begins of the bladder from the cervix. Due to the dense adherence of the bladder to the cervix, it was felt prudent to perform open procedure at this point. The trocars were removed as the pneumoperitoneum was released. The 10-mm port was removed left and a scalpel was used to extend this incision. The fascial incisions extended out laterally and the rectus bellies dissected free. Initially an Yasir self-retaining retractor was placed, but this gives poor visualization of the cervix. A Slovan is now placed with the upper blade packing away the bowel. The bladder was identified and using Metzenbaum scissors, dissection was carried out across the anterior surface of the cervix freeing the bladder from its attachments. The bladder was dissected free and 2 Romel-[place] clamps were placed over the uterosacral ligaments on both right and left side. These pedicles developed sharply and then stick tied. These were held for better visualization of the cervical stump. Again, a Romel-[place] clamp was used to cross clamp the superior aspect of the vagina right below the cervix. Using Mavis scissors, the cervix was now removed. The cuff was closed with interrupted 0 Vicryl ligatures. The cuff was now irrigated, irrigant removed. Pressure was held on the cuff for 3 minutes and hemostasis was adequate. Lucretia was placed over the vaginal cuff. The rectus bellies were inspected and found to be hemostatic. The fascia was now closed with looped PDS. Subcutaneous tissue was irrigated. Bleeding vessels cauterized and the deep tissues reapproximated with plain gut. Subcuticular stitch was applied. All port sites were closed with a subcuticular 3-0 Monocryl. TRANSINT:[id number] Voice Confirmation ID: [id number] DOCUMENT ID: [id number] JOZEF SCHMITT MD at 1622 CC: [id number] DICTATION DATE: 03/29/19923 COMMUNICATIONS SPECIALIST: 03/29/19 1057 ADM IN [facility] [address] [id number]
--- NOTE | 2019-03-30 16:30 | NUR ---
DR. SCHMITT IN ROOM W/ PT AT THIS TIME.
--- NOTE | 2019-03-30 17:30 | NUR ---
D/C INSTRUCTIONS REVIEWED W/ PT. PT GIVEN WRITTEN & VERBAL INSTRUCTIONS. PT VOICED UNDERSTANDING OF ALL INSTRUCTIONS. PT ALSO GIVE RX'S AT THIS TIME.
--- NOTE | 2019-03-30 17:40 | NUR ---
PT D/C'ED AT THIS TIME IN STABLE CONDITION. PT WHEELED OUT TO AUTO BY RN. PT'S S.O. (YOHANA) DRIVING.
== END 2019-03-30 17:30 | disposition home or self-care (01) | DRG 983 ==
LOC: D.OPS 05:00 → D.PAN 09:15 → D.WS 10:46 → D.OPS 10:46 → D.WS 12:51
PROVIDERS: ADMIT Obstetrics & Gynecology; ATTEND Obstetrics & Gynecology
PROC: 0UBC0ZZ Excision of Cervix, Open Approach (ICD-10-PCS; principal; 2019-03-29 07:00)
PROC: 0UT74ZZ Resection of Bilateral Fallopian Tubes, Percutaneous Endoscopic Approach (ICD-10-PCS; 2019-03-29 07:00)
PROC: 0UT24ZZ Resection of Bilateral Ovaries, Percutaneous Endoscopic Approach (ICD-10-PCS; 2019-03-29 07:00)
DX: R10.2 Pelvic and perineal pain (principal); N80.9 Endometriosis, unspecified; N73.6 Female pelvic peritoneal adhesions (postinfective)

== ENCOUNTER 2019-04-03 09:46 | Inpatient (IN) | payer MEDICAID ==
[~2019-04-03] VITALS: Ht 162.6 cm; Wt 78.5 kg
--- NOTE | 2019-04-03 10:05 | NUR ---
BRUISING AND SWELLING FROM PROCEDURE NOTED. VERY TENDER TO TOUCH.
[2019-04-03 10:23] LABS: BASOPHILS 0.2 % (0-2); EOSINOPHILS 1.9 % (0-7); HEMATOCRIT 37.3 % (36.0-48.0); HEMOGLOBIN 12.6 g/dL (12-16); IMMATURE GRANULOCYTES 0.4 % (0-5); LYMPHOCYTES 10.3 % (15-50); MCH 32.6 pg (26.0-34.0); MCHC 33.8 g/dL (31.0-37.0); MCV 96.6 fL (80.0-100.0); MEAN PLATELET VOLUME 10.6 fL (7.4-10.4); MONOCYTES 7.8 % (2-11); NEUTROPHILS 79.4 % (40-80); RBC 3.86 10x6/uL (4.00-5.40); RDW 12.8 % (11.5-14.5); WBC 16.8 10x3/uL (4.8-10.8)
[2019-04-03 10:28] LABS: PLATELET COUNT 323 10x3/uL (130-400)
[2019-04-03 10:32] LABS: CALC OSMOLALITY 271 mosm/kg (275-300); CALCIUM 8.5 mg/dL (8.5-10.1); CARBON DIOXIDE 22.1 mmol/L (21.0-32.0); CHLORIDE - SERUM 102 mmol/L (98-107); CREATININE - SERUM 0.8 mg/dL (0.6-1.3); GLUCOSE 111 mg/dL (74-106); POTASSIUM - SERUM 4.2 mmol/L (3.5-5.1); SODIUM 137 mmol/L (136-145); UREA NITROGEN 5 mg/dL (7-18); eGFR NON AFRICAN AMERICAN 85 mL/min (90-120)
[2019-04-03 10:40] LABS: ALKALINE PHOSPHATASE 118 U/L (46-116); ALT (SGPT) 46 U/L (10-68); BILIRUBIN - TOTAL 0.57 mg/dL (0.2-1.3); PROTEIN - SERUM 7.5 g/dL (6.4-8.2)
[2019-04-03 10:41] LABS: COLOR YELLOW (YELLOW)
[2019-04-03 10:42] LABS: APPEARANCE CLEAR (CLEAR); BACTERIA MANY /hpf (NEGATIVE); BILIRUBIN NEGATIVE (NEGATIVE); EPITHELIAL CELLS 0-5 /hpf (0-5); GLUCOSE NEGATIVE (NEGATIVE); KETONE NEGATIVE (NEGATIVE); NITRITE POSITIVE (NEGATIVE); PROTEIN NEGATIVE (NEGATIVE); RED CELLS - URINE 0-5 /hpf (0-5); UROBILINOGEN NORMAL (NORMAL)
--- NOTE | 2019-04-03 11:48 | NUR ---
PT IN CT, BOLUS OF NS READY TO GO. WILL START WHEN PT GETS BACK.
[2019-04-03] MEDS ORDERED: ESTRACE1 MG (13:41)
[2019-04-03] MEDS ORDERED: MOBIC7.5 MG (13:42)
[2019-04-03] MEDS ORDERED: PERCOCET 7.5/321 TAB PO (13:44)
--- NOTE | 2019-04-03 13:45 | NUR ---
NEW PATIENT ADMIT FROM ER VIA WC ACCOMPANIED BY FAMILY AND HOSPITAL STAFF. PATIENT TRANSFERRED TO HOPTAL BED. PATIENT IS AWAKE, ALERT AND ORIENTED X 4. ASSESSMENT COMPLETED. ORIENTED TO ROOM AND CALL LIGHT. WILL CONTINUE WITH PLAN OF CARE. SR UP X 2 BED IN LOW POSITION AND CALL LIGHT N REACH.
[2019-04-03 13:48] VITALS: BP 98/55; BMI 18.4
--- NOTE | 2019-04-03 14:49 | NUR ---
PATIENT LAYING IN BED WITH EYES CLOSED AND BREATHING EVENLY. WILL CONTINUE TO MONITOR. SR UP X 2 BED IN LOW POSITION AND CALL LIGHT IN REACH.
--- NOTE | 2019-04-03 15:30 | NUR ---
PATIENT COMPLAINS OF INCISIONAL PAIN OF AN 8. DEMEROL CAN BE GIVEN AT 5PM. MDICATED PER JUL WITH TYLENOL 650 MG PO. WILL CONTINUE TO MONITOR PATIENT . SR UP X 2 BED IN LOW POSITION AND CALL LIGHT IN REACH.
[2019-04-03 16:03] VITALS: BP 94/56
--- NOTE | 2019-04-03 17:53 | NUR ---
PATIENT BP CONTINUES TO BE LOW 96/56. INFORMED PATIENT THAT BP TOO LOW TO RECEIVE DEMEROL 25 IV DUE TO WILL DROP BP EVEN LOWER. INCREASED FLUIDS TO 150 PER HOUR AND WILL RE CHECK SHORTLY.
--- NOTE | 2019-04-03 19:15 | NUR ---
REPORT RECIEVED FROM TIFFANIE SALDANA. PT ALERT AND ORIENTED X4 RESTING IN BED. PT COMPLAINS OF PAIN 8/10 IN ABDOMEN. WILL ASSESS PT'S BP AND GIVE PRN PAIN MEDICATION. RR EVEN AND UNLABORED. NO S/S OF DISTRESS AT THIS TIME. BED LOW CALL LIGHT WITHIN REACH. WILL CONTINUE TO MONITOR.
[2019-04-03 21:06] VITALS: BP 100/59
[2019-04-03 23:03] VITALS: BP 100/59
--- NOTE | 2019-04-03 23:05 | NUR ---
PT SITTING IN BED ALERT AND ORIENTED X4. RR EVEN AND UNLABORED. NO S/S OF DISTRESS. FAMILY AT BEDSIDE. BED LOW CALL LIGHT WITHIN REACH WILL CONTINUE TO MONITOR.
--- NOTE | 2019-04-04 00:37 | NUR ---
PT COMPLAINS OF PAIN IN ABDOMEN AREA. PRN PAIN MEDICATION GIVEN AT THIS TIME. BED LOW CALL LIGHT WITHIN REACH. WILL CONTINUE TO MONITOR. AT BEDSIDE.
--- NOTE | 2019-04-04 02:57 | NUR ---
I have reviewed this patient and I concur with the Shift Assessment completed by the Licensed Practical Nurse today this shift.
[2019-04-04 05:36] LABS: BASOPHILS 0.4 % (0-2); EOSINOPHILS 3.5 % (0-7); HEMATOCRIT 32.1 % (36.0-48.0); HEMOGLOBIN 10.5 g/dL (12-16); IMMATURE GRANULOCYTES 0.3 % (0-5); LYMPHOCYTES 19.6 % (15-50); MCH 31.8 pg (26.0-34.0); MCHC 32.7 g/dL (31.0-37.0); MCV 97.3 fL (80.0-100.0); MEAN PLATELET VOLUME 10.4 fL (7.4-10.4); MONOCYTES 9.6 % (2-11); NEUTROPHILS 66.6 % (40-80); PLATELET COUNT 305 10x3/uL (130-400); RDW 12.9 % (11.5-14.5); WBC 10.2 10x3/uL (4.8-10.8)
[2019-04-04 05:51] LABS: CALC OSMOLALITY 270 mosm/kg (275-300); CALCIUM 7.8 mg/dL (8.5-10.1); CHLORIDE - SERUM 106 mmol/L (98-107); CREATININE - SERUM 0.7 mg/dL (0.6-1.3); GLUCOSE 99 mg/dL (74-106); MAGNESIUM - SERUM 2.1 mg/dL (1.8-2.4); PHOSPHOROUS 3.3 mg/dL (2.5-4.9); SODIUM 137 mmol/L (136-145); UREA NITROGEN 4 mg/dL (7-18); eGFR NON AFRICAN AMERICAN > 90 mL/min (90-120)
--- NOTE | 2019-04-04 06:47 | NUR ---
CHANGED PT'S DRESSING TO ABDOMINAL INCISION. DRESSING OF 3 4X4'S SATURATED IN BRIGHT RED BLOOD. DR. SCHMITT SAW PT IN AM. WILL CONTINUE TO MONITOR PT.
--- NOTE | 2019-04-04 07:30 | NUR ---
RECIEVED REPORT. ALERT AND ORIENTED X4. SITTING UP IN BED. ABDOMINAL DRESSING SATURATED WITH BLOOD. TIFFANIE MCLAIN CHANGES ABDOMINAL DRESSING. DENIES ANY NEEDS. CONTINUE PLAN OF CARE AND SAFETY PRECAUTIONS.
[2019-04-04 08:31] VITALS: BP 97/57
[2019-04-04 11:57] VITALS: BP 88/47
[2019-04-04 20:12] VITALS: BP 97/57
--- NOTE | 2019-04-04 22:52 | NUR ---
CHANGED PATIENT'S PACKING AND DRESSING TO ABDOMINAL WOUND
[2019-04-05] VITALS (7 sets, daily range): BP systolic 77–103; BP diastolic 44–61; Ht 162.6 cm; Wt 78.5 kg
--- NOTE | 2019-04-05 07:20 | NUR ---
RECIEVE REPORT. ALERT AND ORIENTED X4. RESTING IN BED. ABDOMINAL INCISION DRESSING C/D/I. CONTINUE PAIN MANAGEMENT ORDERED. DENIES SOB. DENIES ANY NEEDS AT THIS TIME. CONTINUE PLAN OF CARE AND SAFETY PRECAUTIONS.
--- NOTE | 2019-04-05 17:16 | NUR ---
ALERT AND ORIENTED X4. AMBULATING IN EMMANUEL. GAIT STEADY. LOWER ABDOMINAL WOUND DRESSING CLEAN DRY INTACT. PAIN MANAGEMENT CONTINUED ORDERED. DENIES ANY NEEDS. CONTINUE PLAN OF CARE AND SAFETY PRECAUTIONS.
--- NOTE | 2019-04-05 18:49 | NUR ---
ALERT AND ORIENTED X4. SITTING UP IN BED. SPOUSE AT BEDSIDE. REPORTS LT WRIST IV BURNING. LT WRIST IV INFILTRATED. DC LT WRIST IV TIP INTACT.
--- NOTE | 2019-04-05 19:54 | NUR ---
PATIENT RESTING IN BED WITH AT BEDSIDE. PATIENT REQUESTED PAIN MEDS FOR 7/10 PAIN. ADMINISTERED MEDS PER ORDERS. BED IN LOWEST POSITION AND CALL LIGHT WITHIN REACH. ENCOURAGED THE PATIENT TO CALL IF SHE HAS NEEDS. WILL CONTINUE TO MONITOR.
--- NOTE | 2019-04-05 22:19 | NUR ---
CHANGED PATIENT'S PACKING AND DRESSING TO ABDOMEN.
[2019-04-06 05:00] VITALS: BP 92/60
--- NOTE | 2019-04-06 07:20 | NUR ---
RECIEVE REPORT. ALERT AND ORIENTED X4. SUPPLIES FOR DRESSING CHANGE ON BEDSIDE TABLE. PREMEDICATED PER DOCTOR ORDER. DENIES ANY NEEDS AT THIS TIME. CONTINUE PLAN OF CARE AND SAFETY PRECAUTIONS.
[2019-04-06 07:58] VITALS: BP 94/65
--- NOTE | 2019-04-06 14:07 | NUR ---
ALERT AND ORIENTED X4. SITTING UP IN BED. DISCHARGE INSTRUCTIONS GIVEN VERBALLY AND WRITTEN. DISCHARGE PAPERS SIGNED ON CHART. DC RT HAND IV TIP INTACT. WOUND SUPPLIES PROVIDED. REMAINS FREE FROM INJURY.
--- NOTE | 2019-04-06 19:13 | MORECARE ---
CASE MANAGEMENT DISCHARGE SUMMARY PATIENT: DONA COSTA UNIT: [id number] ADM DATE: 04/03/19 AGE: 38 : [birth year] SEX: F ROOM/BED: D.1208 AUTHOR: KWADWO BRUNO PHYSICIAN: REFERRING PHYSICIAN: SOFIA SCHMITT MD DATE OF SERVICE: 04/06/19 Discharge Plan Patient Name: DONA COSTA [facility] [facility] 1980 Planned Disposition: Home with Home Health Anticipated Discharge Date: Discharge Date: 04/06/2019 Expected LOS: Initial Reviewer: [email or web address] Initial Review Date: 04/05/2019 Generated: 04/06/19 8:13 pm DCPIA - Discharge Planning Initial Assessment Updated by [email or web address]: Venessa Martell on 04/06/19 7:10 pm * Is the patient Alert and Oriented? Yes * How many steps to enter\exit or inside your home? * PCP OPAL RAMIREZ * [facility] * Preadmission Environment Home with Family * ADLs Independent * Equipment None * List name and contact numbers for known caregivers / representatives who currently or will assist patient after discharge: YOHANA COOMBSIENSilvia - [phone] * Verbal permission to speak to the caregivers and representatives has been obtained from the patient. Yes * Community resources currently utilized None * Additional services required to return to the preadmission environment? No * Can the patient safely return to the preadmission environment? Yes * Has this patient been hospitalized within the prior 30 days at any hospital? Yes External Providers [facility] Next Contact Date: Service Request Date: Service Type: Resolution: Reviewer: Comments: Patient Name: DONA OCSTA Page 52066 at 1913 All edits/amendments must be made on the electronic document DICTATION DATE: 04/06/191911 ANIMAL SERVICES OFFICER: RIDGE 04/06/191911 RPT#: [id number] DC DATE:04/06/19 STATUS: DIS IN [facility] [address] [place] [address] END OF REPORT
--- NOTE | 2019-04-06 19:20 | MORECARE ---
CASE MANAGEMENT DISCHARGE SUMMARY PATIENT: DONA COSTA UNIT: [id number] ADM DATE: 04/03/19 AGE: 38 : [birth year] SEX: F ROOM/BED: D.1208 AUTHOR: KWADWO BRUNO PHYSICIAN: REFERRING PHYSICIAN: JOZEF SCHMITT MD DATE OF SERVICE: 04/06/19 Discharge Plan Patient Name: DONA COSTA Facility: [facility]:[place] : 1980 Planned Disposition: Home with Home Health Anticipated Discharge Date: Discharge Date: 04/06/2019 Expected LOS: Initial Reviewer: [email or web address] Initial Review Date: 04/05/2019 Generated: 04/06/19 8:20 pm Comments DCP- Discharge Planning Updated by [email or web address]: Venessa Martell on 04/06/19 6:[address] LATE ENTRY 04/05/19 @ 1445 Patient Name: DONA COSTA Admission Status: ER Accout number: [id number] Admission Date: 04-03-2019 : 1980 Admission Diagnosis: Attending: Jozef Schmitt Current LOS: 3 Anticipated DC Date: Planned Disposition: Home with Home Health Primary Insurance: MEDICAID [place] Discharge Planning Comments: CM met with patient to complete initial dc planning assessment. CM educated patient on the CM role and verbal consent given by patient to complete assessment. Patient lives at home with her boyfriend where she is independent with her care. At discharge patient plans to return home and feels this is a safe discharge. CM discussed availability of home health, rehab services, and medical equipment. Her boyfriend will drive her home. [facility] signed for [facility] . Patient denied known discharge needs at this time. CM will continue to follow and will assist as needed with dc plans/needs. Cosmetic Sales Assistant: Venessa Martell DCPIA - Discharge Planning Initial Assessment Updated by [email or web address]: Venessa Martell on 04/06/19 7:10 pm * Is the patient Alert and Oriented? Yes * How many steps to enter\exit or inside your home? * PCP OPAL RAMIREZ * [facility] * Preadmission Environment Home with Family * ADLs Independent * Equipment None * List name and contact numbers for known caregivers / representatives who currently or will assist patient after discharge: YOHANA COOMBSIENSilvia - [phone] * Verbal permission to speak to the caregivers and representatives has been obtained from the patient. Yes * Community resources currently utilized None * Additional services required to return to the preadmission environment? No * Can the patient safely return to the preadmission environment? Yes * Has this patient been hospitalized within the prior 30 days at any hospital? Yes Last DP export: 04/06/19 6:13 Patient Name: DONA COSTA Page 72300 at 1920 All edits/amendments must be made on the electronic document DICTATION DATE: 04/06/191919 GLUE MAKER BONE: RIDGE 04/06/191919 RPT#: [id number] DC DATE:04/06/19 STATUS: DIS IN [facility] [address] [place] [address] END OF REPORT
--- NOTE | 2019-04-06 19:40 | MORECARE ---
CASE MANAGEMENT DISCHARGE SUMMARY PATIENT: DONA COSTA UNIT: [id number] ADM DATE: 04/03/19 AGE: 38 : [birth year] SEX: F ROOM/BED: D.1208 AUTHOR: DAMION,KWADWO PHYSICIAN: REFERRING PHYSICIAN: JOZEF SCHMITT MD DATE OF SERVICE: 04/06/19 Discharge Plan Patient Name: DONA COSTA Facility[facility]:[place] : 1980 Planned Disposition: Home with Home Health Anticipated Discharge Date: Discharge Date: 04/06/2019 Expected LOS: Initial Reviewer: [email or web address] Initial Review Date: 04/05/2019 Generated: 04/06/19 8:39 pm Comments DCP- Discharge Planning Updated by [email or web address]: Venessa Martell on 04/06/19 6:[address] CM contacted [facility] and faxed over records. CM spoke with patient and asked if she had a teachable memory care director to do dressing changes. Patient stated that she will have her sister n law change dressing if needed. CM spoke with [facility] and they will not be able to admit patient until . Patient stated that would be fine she will get her sister n law to change dressing Friday. CM verified with Dr. Schmitt that dressing changes are daily not twice a day. Dr. Schmitt stated that daily dressing changes are fine. Nursing will send home supplies for dressing change to be done Fri until HH can see patient on . Patient stated she will be staying at [address] [place] [address]. CM gave this information to [facility]. CM will continue to follow and assist as needed with discharge planning / needs. DCP- Discharge Planning Updated by [email or web address]: Venessa Martell on 04/06/19 6:[address] LATE ENTRY 04/05/19 @ 1445 Patient Name: DONA COSTA Admission Status: ER Accout number: [id number] Admission Date: 04-03-2019 : 1980 Admission Diagnosis: Attending: Jozef Schmitt Current LOS: 3 Anticipated DC Date: Planned Disposition: Home with Home Health Primary Insurance: MEDICAID [place] Discharge Planning Comments: CM met with patient to complete initial dc planning assessment. CM educated patient on the CM role and verbal consent given by patient to complete assessment. Patient lives at home with her boyfriend where she is independent with her care. At discharge patient plans to return home and feels this is a safe discharge. CM discussed availability of home health, rehab services, and medical equipment. Her boyfriend will drive her home. [facility] signed for [facility]. Patient denied known discharge needs at this time. CM will continue to follow and will assist as needed with dc plans/needs. Lead Shipper: Venessa Martell DCPIA - Discharge Planning Initial Assessment Updated by [email or web address]: Venessa Martell on 04/06/19 7:10 pm * Is the patient Alert and Oriented? Yes * How many steps to enter\exit or inside your home? * PCP OPAL RAMIREZ * [facility] * Preadmission Environment Home with Family * ADLs Independent * Equipment None * List name and contact numbers for known caregivers / representatives who currently or will assist patient after discharge: YOHANA TIRADO - [place] - [phone] * Verbal permission to speak to the caregivers and representatives has been obtained from the patient. Yes * Community resources currently utilized None * Additional services required to return to the preadmission environment? No * Can the patient safely return to the preadmission environment? Yes * Has this patient been hospitalized within the prior 30 days at any hospital? Yes Coverage Notice Reviewer: [email or web address] - Venessa Martell Notice Issued Date-Time: 04/05/2019 19:34 Notice Type: Patient Choice Letter Notice Delivered To: Patient Relationship to Patient: Driving School Instructor Name: Delivery Method: HAND - Hand Delivered Brenda Days: Prior Verbal Notification: Recipient Understood Notice: Yes Recipient Signature: Yes Med Rec Note Co-signed by Attending: Coverage Notice Comment: frankie signed for [facility] Last DP export: 04/06/19 6:20 Patient Name: DONA COSTA Page 11556 at 1940 All edits/amendments must be made on the electronic document DICTATION DATE: 04/06/191938 RAD TECH: RIDGE 04/06/191938 RPT#: [id number] DC DATE:04/06/19 STATUS: DIS IN [facility] [address] [place] [address] END OF REPORT
== END 2019-04-06 14:15 | disposition home or self-care (01) | DRG 863 ==
LOC: D.ER 09:46 → D.M3 12:41
PROVIDERS: Family Medicine; ADMIT Obstetrics & Gynecology; ATTEND Obstetrics & Gynecology
DX: T81.41XA Infection following a procedure, superficial incisional surgical site, initial encounter (principal); N39.0 Urinary tract infection, site not specified; F17.210 Nicotine dependence, cigarettes, uncomplicated; B96.20 Unspecified Escherichia coli [E. coli] as the cause of diseases classified elsewhere

== ENCOUNTER 2019-04-19 05:05 | Day surgery (SDC) | payer MEDICAID ==
[~2019-04-19] VITALS: Ht 162.6 cm; Wt 78.0 kg
[~2019-04-19 05:05] MED LIST changes: +ESTRACE1 MG; +MOBIC7.5 MG
[2019-04-19 05:27] LABS: HEMATOCRIT 38.6 % (36.0-48.0); HEMOGLOBIN 12.6 g/dL (12-16); MCH 32.1 pg (26.0-34.0); MCHC 32.6 g/dL (31.0-37.0); MCV 98.5 fL (80.0-100.0); MEAN PLATELET VOLUME 11.1 fL (7.4-10.4); RBC 3.92 10x6/uL (4.00-5.40); RDW 12.8 % (11.5-14.5); WBC 7.8 10x3/uL (4.8-10.8)
[2019-04-19 06:05] VITALS: BP 99/67; Ht 162.6 cm; Wt 78.0 kg
--- NOTE | 2019-04-20 13:29 | OP ---
PATIENT NAME: DONA COSTA MEDICAL RECORD: [id number] :82 LOCATION:D.OPS ADMISSION DATE: SURGEON: JOZEF SCHMITT MD DATE OF OPERATION: 04/19/2019 PREOPERATIVE DIAGNOSIS: Wound breakdown/hematoma. POSTOPERATIVE DIAGNOSIS: Wound breakdown/hematoma. PROCEDURE: Delayed primary closure. SURGEON: Jozef Schmitt MD ENGINEERING SECRETARY: Jackie. ANESTHESIOLOGIST: Diana. MACHINE SHORTHAND TEACHER: GABBY Wilcox. ANESTHESIA: General. FINDINGS: Wound is granulating. There is no evidence of fibrinous exudate. No evidence of infection. Defect is approximately 8 cm in length and 2.5 cm depth. SPECIMENS REMOVED: Not applicable. ESTIMATED BLOOD LOSS: Less than 100 cc. FLUIDS: 1 liter lactated Ringer's. URINE OUTPUT: Quantity sufficient void prior to this procedure. COMPLICATIONS: None. DRAINS: None. INDICATIONS: The patient is a 38-year-old female status post exploratory laparotomy with RSO. The patient had developed postoperative hematoma with resulting wound breakdown. The patient has been doing wet-to-dry dressing changes and request delayed close of wound breakdown. DESCRIPTION OF PROCEDURE: After informed consent was assured, the patient was taken to the operating room where anesthetic was obtained. The dressing was removed and the abdomen prepped. The incision was now irrigated with 3 liters of vancomycin solution. The wound edges are debrided. A plain gut was used to reapproximate the deep tissues and interrupted 2-0 nylon was used to reapproximate the skin edges. Sponge, lap, and needle counts correct times 2. Sterile dressing was applied and the patient went to the recovery area in stable condition. TRANSINT:[id number] Voice Confirmation ID: [id number] DOCUMENT ID: [id number] OPERATIVE REPORT [id number] DONA COSTA JOZEF SCHMITT MD at 1329 CC: [id number] DICTATION DATE: 04/19/19 1143 SUPERVISOR SUNGLASSES: 04/19/19 1525 [facility] [place] 04/19/[address] [address]
== END 2019-04-19 14:15 | disposition home or self-care (01) ==
LOC: D.OPS 05:05 → D.PAN 08:15 → D.OPS 14:15
PROVIDERS: Anesthesiology; ATTEND Obstetrics & Gynecology
DX: T14.8XXA Other injury of unspecified body region, initial encounter (principal); X58.XXXA Exposure to other specified factors, initial encounter; Z98.890 Other specified postprocedural states

== ENCOUNTER → 2019-11-16 13:38 | Outpatient (CLI) | payer MEDICAID ==
[2019-04-19 06:05] VITALS: BMI 29.6
== END | disposition home or self-care (01) ==
LOC: D.US 13:38
PROVIDERS: ATTEND Obstetrics & Gynecology
DX: N64.4 Mastodynia (principal)

== ENCOUNTER 2020-01-12 10:16 | Emergency (ER) | payer MEDICAID ==
[~2020-01-12] VITALS: Ht 162.6 cm; Wt 72.7 kg
[2020-01-12 10:20] VITALS: Ht 162.6 cm; Wt 72.7 kg
[2020-01-12] MEDS ORDERED: VOLTAREN75 MG PO (10:46)
[2020-01-12] MEDS ORDERED: BACLOFEN20 M1 PO (10:46)
[2020-01-12] MEDS ORDERED: PREDNISONE20 MG PO (10:58)
[2020-01-12 11:34] VITALS: BP 122/63
== END 2020-01-12 11:35 | disposition home or self-care (01) ==
LOC: D.ER 10:16
DX: S49.92XA Unspecified injury of left shoulder and upper arm, initial encounter (principal); S43.402A Unspecified sprain of left shoulder joint, initial encounter; W01.0XXA Fall on same level from slipping, tripping and stumbling without subsequent striking against object, initial encounter; M25.512 Pain in left shoulder

== ENCOUNTER → 2020-10-19 14:25 | Outpatient (CLI) | payer MEDICAID ==
[2020-04-27 12:57] VITALS: BMI 32.7
--- NOTE | 2020-10-18 14:15 | NUR ---
APPOINTMENT CONFIRMED. DENIES IODINE ALLERGY
[~2020-10-19 14:25] MED LIST changes: +BACLOFEN20 M1 PO; +PREDNISONE20 MG PO; +VOLTAREN75 MG PO
== END | disposition home or self-care (01) ==
LOC: D.RAD 14:25
PROVIDERS: ATTEND Nurse Practitioner Family
DX: S43.432A Superior glenoid labrum lesion of left shoulder, initial encounter (principal)